=== PATIENT | female | born 1990 | race American Indian/Alaskan Native ===

== ENCOUNTER 2017-09-16 18:21 | Emergency (ER) | payer MEDICAID ==
--- NOTE | 2017-09-16 19:06 | ED PDOC ---
Arrival/HPI - General Historian: Patient - History of Present Illness Time/Duration: Other Context: Home <Johanny Wells P - Last Filed: 09/16/17 20:24> <Mitesh Nielson - Last Filed: 09/18/17 10:47> - General Chief Complaint: Abdominal Pain Time Seen by Provider: 09/16/17 18:53 - History of Present Illness Narrative History of Present Illness (Text): 09/16/17 18:55 This 26 yo female Gravid, 21 weeks, , presents to this ED c/o RLQ abdominal pain since yesterday. Patient stated pain came suddenly on her right side, and she feels mild nauseous. Patient denies sob, cp, fever, urinary symptoms, dizziness, or abnormal gait. (WellsJohanny Thomas) Past Medical History - Provider Review Nursing Documentation Reviewed: Yes - Infectious Disease Hx of Infectious Diseases: None - Reproductive Menopause: No - Psychiatric Hx Substance Use: No - Anesthesia Hx Anesthesia: No <Johanny Wells P - Last Filed: 09/16/17 20:24> Family/Social History - Physician Review Nursing Documentation Reviewed: Yes Family/Social History: Other (noncontributory) Smoking Status: Current Some Days Smoker Hx Alcohol Use: No Hx Substance Use: No <Johanny Wells P - Last Filed: 09/16/17 20:24> Allergies/Home Meds <Johanny Wells P - Last Filed: 09/16/17 20:24> <Mitesh Nielson - Last Filed: 09/18/17 10:47> Allergies/Adverse Reactions: Allergies No Known Allergies Allergy (Unverified 12/03/13 07:14) Home Medications: Home Meds Medication Instructions Recorded Confirmed No Known Home Med 09/16/17 09/16/17 Review of Systems - Review of Systems Constitutional: Normal. absent: Fatigue, Weight Change, Fevers, Night Sweats Eyes: Normal ENT: Normal Respiratory: Normal. absent: SOB, Cough Cardiovascular: Normal. absent: Chest Pain, Palpitations Gastrointestinal: Abdominal Pain, Nausea. absent: Constipation, Diarrhea, Vomiting Genitourinary Female: Normal. absent: Dysuria, Frequency, Hematuria Musculoskeletal: Normal Skin: Normal. absent: Rash Neurological: Normal. absent: Headache, Dizziness, Focal Weakness, Gait Changes , Speech Changes, Facial Droop, Disequilibrium, Seizure Endocrine: Normal Hemo/Lymphatic: Normal Psychiatric: Normal <WellsLaura cheathamcarolina Thomas - Last Filed: 09/16/17 20:24> Physical Exam Temperature: Afebrile Blood Pressure: Normal Pulse: Regular Respiratory Rate: Normal Appearance: Positive for: Well-Appearing, Non-Toxic, Comfortable Pain Distress: None Mental Status: Positive for: Alert and Oriented X 3 - Systems Exam Head: Present: Atraumatic, Normocephalic Pupils: Present: PERRL Extroacular Muscles: Present: EOMI Conjunctiva: Present: Normal Mouth: Present: Moist Mucous Membranes Neck: Present: Normal Range of Motion Respiratory/Chest: Present: Clear to Auscultation, Good Air Exchange. No: Respiratory Distress, Accessory Muscle Use Cardiovascular: Present: Regular Rate and Rhythm, Normal S1, S2. No: Murmurs Abdomen: Present: Tenderness (Mild RLQ tenderness. (+) gravid), Normal Bowel Sounds. No: Distention, Peritoneal Signs, Rebound, Guarding Genitourinary/Pelvic Exam: Present: Other (deferred) Back: Present: Normal Inspection. No: CVA Tenderness Upper Extremity: Present: Normal Inspection, Normal ROM. No: Cyanosis, Edema Lower Extremity: Present: Normal Inspection. No: Edema Neurological: Present: GCS=15, CN II-XII Intact, Speech Normal, Motor Func Grossly Intact, Normal Sensory Function, Normal Cerebellar Funct, Gait Normal Skin: Present: Warm, Dry, Normal Color. No: Rashes Psychiatric: Present: Alert, Oriented x 3, Normal Insight, Normal Concentration <Johanny Wells P - Last Filed: 09/16/17 20:24> Vital Signs Temp Pulse Resp BP Pulse Ox 09/16/17 20:44 98.6 F 89 16 125/62 99 09/16/17 18:38 98.8 F 92 H 18 126/76 97 Medical Decision Making <Laura Wellscarolina Thomas - Last Filed: 09/16/17 20:24> <Mitesh Nielson - Last Filed: 09/18/17 10:47> ED Course and Treatment: 09/16/17 19:[address] Azevedo, [employer]LE[employer] DRIVER authorization specialist. I reviewed patient c/o RLQ abdominal pain since yesterday. I stated part of my differential Dx. is appendicitis. Patient stated she was a high risk . He recommended to order what is needed to r/o appendicitis, ultrasound, and to call [facility] duet to Hx. high risk . 09/16/17 19:[address] Anna, FLE[employer] DRIVER resident, who also spoke with DR. Vergara, FLE[employer] DRIVER attending. She recommended to transfer patient from our ED to [facility] ED. I spoke with Dr. Aiken ED physician regarding patient Hx. She agreed with transfer for acute abd. pain on high risk 09/16/17 20:15 Patient changed her mind. She refused to be transfer. She stated she has some personal thing to do in the house. She stated she wants to leave against medical advice. She also refused blood test. Leaving Against Medical Advice (AMA). The patient is choosing to leave against medical advice. I have personally explained to the patient that choosing to do so may result in permanent bodily harm or . I have discussed at great length that without further evaluation and monitoring there may be unforeseen circumstances and/or deterioration causing permanent bodily harm or as a result of their choice. The patient is alert, oriented, and shows the mental capacity to make clear decisions regarding the patients health care at this time. The patient continues to wish to leave against medical advice. In light of the patients decision to leave against medical advice, follow-up has been recommended and the patient is aware of the importance to following up as instructed. The patient has been advised that they should return to the emergency room immediately if they change their mind at any time, or if their condition begins to change or worsen in any way. (Johanny Wells) - RAD Interpretation Narrative RAD Interpretations (Text): 09/16/17 20:24 EXAM: FINDINGS: Fetus: Twin live intrauterine gestation. Heart rate: Fetus A heart rate of 156 beats per minute. Fetus B heart rate of 149 beats per minute. Presentation: Fetus A - Variable. Fetus B - Variable. Placenta: Fetus A - Anterior placenta. No abruption. Fetus B - Fundal. No abruption. Amniotic fluid: Fetus A - Normal. Fetus B - Normal. Anatomy: No gross anomaly is appreciated. BIOMETRICS Gestational age: Fetus A gestational age of 22 weeks 3 days by measurements. Fetus B gestational age of 22 weeks 2 days by measurements. EMELY: Fetus A - 01/17/2018 by ultrasound, Fetus B - 01/18/2018 by ultrasound. EFW: Fetus A - 510 g, Fetus B - 484 g. MATERNAL: Uterus: Unremarkable. No myometrial mass. Cervix: No cervical dilatation or effacement. Free fluid: No free fluid. IMPRESSION: 1. Twin live intrauterine gestation. (WellsJohanny Thomas) Radiology Orders: 09/16/17 19:02 AGE [US] Stat - PA / ADMITTING OFFICER / Resident Statement MD/DO has reviewed & agrees with the documentation as recorded. (Patient refuses to comply with further medical intervention & plan for transfer. She acknowledges signing out AMA & demonstrates the alternatives/repercussions involved with delay/refusal of care.) <Mitesh Nielson - Last Filed: 09/18/17 10:47> Disposition/Present on Arrival - Present on Arrival Any Indicators Present on Arrival: No History of DVT/PE: No History of Uncontrolled Diabetes: No Urinary Catheter: No History of Decub. Ulcer: No History Surgical Site Infection Following: None - Disposition Have Diagnosis and Disposition been Completed?: Yes Disposition Time: 20:22 <Johanny Wells - Last Filed: 09/16/17 20:24> <Mitesh Nielson - Last Filed: 09/18/17 10:47> - Disposition Diagnosis: Abdominal pain affecting Disposition: AGAINST MEDICAL ADVICE Condition: UNKNOWN Additional Instructions: [facility] pain [facility]! EXAM: preliminary report FINDINGS: Fetus: Twin live intrauterine gestation. Heart rate: Fetus A heart rate of 156 beats per minute. Fetus B heart rate of 149 beats per minute. Presentation: Fetus A - Variable. Fetus B - Variable. Placenta: Fetus A - Anterior placenta. No abruption. Fetus B - Fundal. No abruption. Amniotic fluid: Fetus A - Normal. Fetus B - Normal. Anatomy: No gross anomaly is appreciated. BIOMETRICS Gestational age: Fetus A gestational age of 22 weeks 3 days by measurements. Fetus B gestational age of 22 weeks 2 days by measurements. EMELY: Fetus A - 01/17/2018 by ultrasound, Fetus B - 01/18/2018 by ultrasound. EFW: Fetus A - 510 g, Fetus B - 484 g. MATERNAL: Uterus: Unremarkable. No myometrial mass. Cervix: No cervical dilatation or effacement. Free fluid: No free fluid. IMPRESSION: 1. Twin live intrauterine gestation. Referrals: Jessica Freeman MD [Primary Care Provider] - Follow up with primary Forms: [employer] (Romanian)
[2017-09-16 20:45] VITALS: BP 125/62; PULSE 89; RESP 16; TEMP 98.6; O2SAT 99
--- NOTE | 2017-09-17 10:12 | US ---
Date of service: 09/16/2017 PROCEDURE: ultrasound HISTORY: RLQ pain COMPARISON: None. TECHNIQUE: Standard protocol for this study/examination. FINDINGS: Twin intrauterine gestations. Fetus A: Variable presentation. Fundal Placenta. No evidence of abruption or previa Gestational age derived from LMP 21 weeks 2 days. EMELY 01/25/2018. Gestational age derived from the following biometric parameters 22 weeks 3 days. EMELY 01/17/2018. Biparietal diameter 5.4 cm Head circumference 19.2 cm Abdominal circumference 17.95 cm Femur length 3.83 cm Estimated weight 510.9 g Calculated cardiac rate 157 beats per min. Closed cervix measuring 3.89 cm Fetus B: Variable presentation. Fundal Placenta. No evidence of abruption or previa Gestational age derived from LMP 21 weeks 2 days. EMELY 01/25/2018. Gestational age derived from the following biometric parameters 22 weeks 2 days. EMELY 01/18/2018 Biparietal diameter 5.42 cm Head circumference 19.91 cm Abdominal circumference 17.13 cm Femur length 3.85 cm Estimated weight 484 g Calculated cardiac rate 149 beats per min. Closed cervix measuring 3.89 cm IMPRESSION: Twin intrauterine gestations. Gestational concordance documented for both fetuses. Concordant results (preliminary interpretation) provided by [employer]. Procedure Completed: 19:38. Preliminary ([facility]) Report: Dictated and Authenticated: 20:12 Final Interpretation: 10:10. September 17, 2017.
== END 2017-09-16 20:45 | disposition left against medical advice (07) ==
LOC: MERGE 18:21 → ED 18:21
DX: O26.892 Other specified pregnancy related conditions, second trimester (principal); R10.9 Unspecified abdominal pain; Z3A.22 22 weeks gestation of pregnancy